=== PATIENT | male | born 1955 | race Caucasian/White ===

== ENCOUNTER → 2018-08-20 | Outpatient (CLI) | payer OTHER ==
[2018-08-20 11:36] LABS: HEMATOCRIT 46.3 % (42.0-52.0); HEMOGLOBIN 15.9 g/dl (13.5-17.5); MEAN CORPUSCULAR HEMOGLOBIN 30.1 pg (27.0-33.0); MEAN CORPUSCULAR HGB CONC 34.3 g/dl (32.0-36.5); MEAN CORPUSCULAR VOLUME 87.5 fl (80.0-96.0); PLATELET COUNT, AUTOMATED 266 10^3/uL (150-450); RED BLOOD COUNT 5.29 10^6/uL (4.30-6.10); WHITE BLOOD COUNT 6.4 10^3/uL (4.0-10.0)
[2018-08-20 11:53] LABS: INR 0.87; PROTHROMBIN TIME 11.9 SECONDS (12.1-14.4)
[2018-08-20 12:08] LABS: ERYTHROCYTE SEDIMENTATION RATE 7 mm/hr (0-20)
[2018-08-20 17:20] LABS: BLOOD UREA NITROGEN 15 MG/DL (7-18); CARBON DIOXIDE LEVEL 30 MEQ/L (21-32); CHLORIDE LEVEL 103 MEQ/L (98-107); CREATININE FOR GFR 1.04 MG/DL (0.70-1.30); GLOMERULAR FILTRATION RATE > 60.0 (>49); GLUCOSE, FASTING 87 MG/DL (70-100); POTASSIUM SERUM 4.7 MEQ/L (3.5-5.1); SODIUM LEVEL 140 MEQ/L (136-145)
[2018-08-20 17:21] LABS: ALBUMIN 4.1 GM/DL (3.2-5.2); ALBUMIN/GLOBULIN RATIO 1.28 (1.00-1.93); ALKALINE PHOSPHATASE 60 U/L (45-117); ALT/SGPT 27 U/L (12-78); ANION GAP 7 MEQ/L (8-16); AST/SGOT 13 U/L (7-37); BILIRUBIN,TOTAL 0.4 MG/DL (0.2-1.0); CALCIUM LEVEL 9.7 MG/DL (8.8-10.2); TOTAL PROTEIN 7.3 GM/DL (6.4-8.2)
== END ==
LOC: M LAB 10:53
DX: Z01.818 Encounter for other preprocedural examination (principal); M16.12 Unilateral primary osteoarthritis, left hip

== ENCOUNTER 2018-09-11 10:48 | Inpatient (IN) | payer OTHER ==
[2018-09-11] MEDS: LR 1,000 ML IV ×2 (11:00→23:18)
[2018-09-11] MEDS ORDERED: PROPOFOL 200 MG/20 ML VIAL As Ordered ×8 (11:16→16:29)
[2018-09-11] MEDS ORDERED: LIDOCAINE 2% INJ 100 MG/5 ML SDV (FOR ANES.) As Ordered (11:16)
[2018-09-11] MEDS ORDERED: ONDANSETRON 4MG/2ML VIAL (J2405) As Ordered ×2 (11:16→13:43)
[2018-09-11] MEDS ORDERED: MIDAZOLAM INJ 2 MG/2 ML VIAL (J2250) As Ordered ×2 (11:17→13:50)
[2018-09-11] MEDS ORDERED: fentaNYL 100 MCG/2 ML INJECTION (J3010) As Ordered ×2 (11:17→13:50)
[2018-09-11] MEDS: PERCOCET 5MG/325MG TAB PO ×3 (11:40→18:42)
[2018-09-11] MEDS: PREGABALIN 75 MG CAP(LYRICA) PO (11:40)
[2018-09-11] MEDS: CelecoXIB 400 MG CAP PO (11:45)
[2018-09-11] MEDS: ceFAZolin 1GM INJ (J0690 PER 500MG) As Ordered ×2 (13:42→15:23)
[2018-09-11] MEDS ORDERED: dexameTHASONE 4 MG/ML 1ML VIAL (J1100) As Ordered (13:43)
[2018-09-11] MEDS ORDERED: BUPIVACAINE/DEXTROSE 0.75% 2 ML AMP As Ordered (13:43)
[2018-09-11] MEDS: EPINEPHrine INJ 1 MG/ML 1ML AMP As Ordered ×2 (13:51→15:20)
[2018-09-11] MEDS: BUPIVACAINE/EPIN 0.25% 30 ML VIAL As Ordered (14:57)
[2018-09-11] MEDS ORDERED: PHENYLephrine HCL 500 MCG/5 ML (100MCG/ML) SYRINGE (J2370) As Ordered (15:01)
[2018-09-11] MEDS ORDERED: PHENYLEPHRINE INJ 10MG/ML VIAL (J2370) As Ordered (15:01)
[2018-09-11] MEDS: TRANEXAMIC ACID 100 MG/ML 10ML VIAL As Ordered (15:21)
[2018-09-11] MEDS ORDERED: ePHEDrine INJ 50 MG/ML VIAL As Ordered (15:22)
[2018-09-11] MEDS ORDERED: ePHEDrine SULFATE 25 MG/5 ML(5MG/ML) SYRINGE As Ordered (15:23)
[2018-09-11] MEDS: VANCOMYCIN HCL 500 MG/10 ML VIAL (J3370) As Ordered (16:47)
[2018-09-11] MEDS: BUPIVACAINE LIPOSOME/PF 1.3% 20 ML VIAL (13.3MG/ML)(EXPAREL) As Ordered (16:57)
[2018-09-11] MEDS: BUPIVACAINE HCL 0.5% 10 ML VIAL As Ordered (16:57)
[2018-09-11] MEDS ORDERED: MORPHINE 10 MG/ML 1ML VIAL (J2270) IV (18:00)
[2018-09-11] MEDS ORDERED: fentaNYL 100 MCG/2 ML INJECTION (J3010) IV (18:00)
[2018-09-11] MEDS: ONDANSETRON 4MG/2ML VIAL (J2405) IV (18:20)
[2018-09-11] MEDS ORDERED: ACETAMINOPHEN TAB 650MG DOSE (2X325MG) PO (18:30)
[2018-09-11] MEDS ORDERED: CYCLOBENZAPRINE 10 MG TAB PO (18:45)
[2018-09-11] MEDS ORDERED: TEMAZEPAM 15 MG CAP PO (18:45)
[2018-09-11] MEDS ORDERED: FLEET ENEMA PR (18:45)
[2018-09-11] MEDS ORDERED: PILL CRUSHER/CUTTER 1 EACH XX (18:45)
[2018-09-11] MEDS ORDERED: HYDROMORPHONE HCL 0.5 MG/ 0.5 ML SYRINGE (J1170 PER 1) IV ×2 (18:45)
[2018-09-11] MEDS: CALCIUM CARBONATE 500 MG CHEW U/D PO (20:55)
[2018-09-11] MEDS: D5W/LR 1,000 ML IV (23:16)
[2018-09-11] MEDS: ceFAZolin SOD 1 GM in D5W MINI-BAG PLUS 50 ML IV (23:20)
[2018-09-11] MEDS: PROMETHAZINE 25 MG TAB PO (23:54)
[2018-09-12] MEDS: CALCIUM CARBONATE 500 MG CHEW U/D PO (00:45)
[2018-09-12] MEDS: PERCOCET 5MG/325MG TAB PO ×4 (05:54→21:55)
[2018-09-12] MEDS: ceFAZolin SOD 1 GM in D5W MINI-BAG PLUS 50 ML IV (06:56)
[2018-09-12 07:14] LABS: HEMATOCRIT 38.1 % (42.0-52.0); MEAN CORPUSCULAR HEMOGLOBIN 29.7 pg (27.0-33.0); MEAN CORPUSCULAR HGB CONC 34.1 g/dl (32.0-36.5); PLATELET COUNT, AUTOMATED 262 10^3/uL (150-450); RED BLOOD COUNT 4.38 10^6/uL (4.30-6.10); RED CELL DISTRIBUTION WIDTH 12.6 % (11.5-14.5); WHITE BLOOD COUNT 10.3 10^3/uL (4.0-10.0)
[2018-09-12 07:23] LABS: INR 1.07
[2018-09-12] MEDS: MIRALAX *UNIT DOSE* 17GM PACKET PO (09:01)
[2018-09-12] MEDS: MULTIVITAMINS/MINERALS THERAP 1 TAB PO (09:01)
[2018-09-12] MEDS: METAMUCIL (PSYLLIUM) PACKET PO (09:01)
[2018-09-12] MEDS: CelecoXIB (CeleBREX) 100 MG CAP PO (09:02)
[2018-09-12] MEDS: RIVAROXABAN 10 MG TAB (XARELTO) PO (18:38)
[2018-09-13] MEDS: PERCOCET 5MG/325MG TAB PO ×4 (02:48→16:34)
[2018-09-13] MEDS: METAMUCIL (PSYLLIUM) PACKET PO (08:05)
[2018-09-13] MEDS: MIRALAX *UNIT DOSE* 17GM PACKET PO (08:05)
[2018-09-13] MEDS: MULTIVITAMINS/MINERALS THERAP 1 TAB PO (08:05)
[2018-09-13] MEDS: RIVAROXABAN 10 MG TAB (XARELTO) PO (16:35)
== END 2018-09-13 16:49 | disposition home health service (06) | DRG 470 ==
LOC: M OR 10:48 → M MS5PR 18:48
PROVIDERS: Orthopaedic Surgery
PROC: 0SRB0JZ Replacement of Left Hip Joint with Synthetic Substitute, Open Approach (ICD-10-PCS; principal; 2018-09-11 13:00)
DX: M16.12 Unilateral primary osteoarthritis, left hip (principal)

== ENCOUNTER → 2023-09-02 | Outpatient (CLI) | payer MEDICARE, OTHER ==
[~2023-09-02] MED LIST: MELO15TA28 PO; PERC5TAB12 PO; XARE10TA PO
[2023-09-02 11:05] LABS: HEMOGLOBIN 15.4 g/dl (13.5-17.5); MEAN CORPUSCULAR HEMOGLOBIN 30.7 pg (27.0-33.0); MEAN CORPUSCULAR HGB CONC 34.2 g/dl (32.0-36.5); MEAN CORPUSCULAR VOLUME 89.8 fl (80.0-96.0); PLATELET COUNT, AUTOMATED 262 10^3/uL (150-450); RED BLOOD COUNT 5.01 10^6/uL (4.30-6.10)
[2023-09-02 11:45] LABS: POTASSIUM SERUM 5.1 MMOL/L (3.5-5.1)
== END ==
LOC: M EKG 10:28
PROVIDERS: ATTEND Orthopaedic Surgery
DX: Z01.818 Encounter for other preprocedural examination (principal); M16.11 Unilateral primary osteoarthritis, right hip

== ENCOUNTER → 2025-11-08 | Outpatient (CLI) | payer MEDICARE, OTHER | LOC: M RAD 08:42 | PROVIDERS: ATTEND Physician Assistant | DX: I71.43 Infrarenal abdominal aortic aneurysm, without rupture (principal); I65.23 Occlusion and stenosis of bilateral carotid arteries ==